=== PATIENT | male | born 1975 | race Hispanic/Latino ===

== ENCOUNTER → 2018-09-04 | Outpatient (CLI) | payer OTHER | END | disposition home or self-care (01) | LOC: RAH 15:19 → EEVIPCON 15:19 | PROVIDERS: ATTEND Internal Medicine | DX: S99.911A Unspecified injury of right ankle, initial encounter (principal); M25.471 Effusion, right ankle; X58.XXXA Exposure to other specified factors, initial encounter; Y93.89 Activity, other specified; Y92.89 Other specified places as the place of occurrence of the external cause; Y99.8 Other external cause status | CPT/HCPCS: 73610 ==